=== PATIENT | female | born 1990 | race Caucasian/White ===

== ENCOUNTER 2018-05-24 13:16 | Emergency (ER) | payer OTHER ==
[2018-05-24 13:38] VITALS: BP 108/62; PULSE 79; TEMP 101.2; BMI 26.4
--- NOTE | 2018-05-24 14:41 | PDOC ---
History of Present Illness - General Chief Complaint: Cold Symptoms Stated Complaint: HEADACHE, COUGH Time Seen by Provider: 05/24/18 14:32 History Source: Patient Exam Limitations: No Limitations - History of Present Illness Initial Comments: 05/24/18 16:34 Pt is a 27 y/o F currently 16 weeks , who presents to the ED with flu like symptoms starting since last night. Pt states that her son had the flu last week and she feels like she has the same symptoms. Admits to body aches, fever, sore throat and cough. Denies vaginal bleeding, vomiting, nausea and diarrhea. Past History - Travel Traveled outside of the country in the last 30 days: No Close contact w/someone who was outside of country & ill: No - Past Medical History Allergies/Adverse Reactions: Allergies Allergy/AdvReac Type Severity Reaction Status Date / Time No Known Allergies Allergy Verified 05/24/18 14:53 Home Medications: Ambulatory Orders Acetaminophen [Tylenol] 650 mg PO Q6H #30 tablet 05/24/18 Albuterol Sulfate Inhaler - [Ventolin HFA Inhaler -] 1 - 2 inh PO Q4H #1 inhaler 05/24/18 Ondansetron [Zofran Odt -] 4 mg SL TID #10 od.tablet 05/24/18 Oseltamivir Phosphate [Tamiflu] 75 mg PO BID #10 capsule 05/24/18 - Suicide/Smoking/Psychosocial Hx Smoking History: Never smoked Have you smoked in the past 12 months: No Information on smoking cessation initiated: No Hx Alcohol Use: No Drug/Substance Use Hx: No Review of Systems - Review of Systems Able to Perform ROS?: Yes Comments:: 05/24/18 16:08 CONSTITUTIONAL: Present: Fever, chills, body aches Absent: diaphoresis, generalized weakness, malaise, loss of appetite HEENT: Present: rhinorrhea, nasal congestion, throat pain. Absent: difficulty swallowing, mouth swelling, ear pain, eye pain, visual Changes CARDIOVASCULAR: Absent: chest pain, loss of consciousness, palpitations, irregular heart rate, peripheral edema RESPIRATORY: Present: Cough Absent: shortness of breath, dyspnea with exertion, orthopnea, wheezing, stridor, hemoptysis GASTROINTESTINAL: Absent: abdominal pain, abdominal distension, nausea, vomiting, diarrhea, constipation, melena, hematochezia SKIN: Absent: rash, itching, pallor NEUROLOGIC: Present: headache Absent: focal weakness or paresthesias, dizziness, unsteady gait, seizure, mental status changes, bladder or bowel incontinence Is the patient limited Czech proficient: No *Physical Exam - Vital Signs Last Vital Signs Temp Pulse Resp BP Pulse Ox 101.2 F H 79 20 108/62 99 05/24/18 13:33 05/24/18 13:33 05/24/18 13:33 05/24/18 13:33 05/24/18 13:33 - Physical Exam Comments: 05/24/18 16:08 GENERAL: Well developed, well nourished. Awake and alert. No acute distress. HEENT: Normocephalic, atraumatic. PERRLA, EOMI. No conjunctival pallor. Sclera are non- icteric. Moist mucous membranes. Oropharynx is clear. NECK: Supple. Full ROM. No JVD. Carotid pulses 2+ and symmetric, without bruits. No thyromegaly. No lymphadenopathy. CARDIOVASCULAR: Regular rate and rhythm. No murmurs, rubs, or gallops. Distal pulses are 2+ and symmetric. PULMONARY: No evidence of respiratory distress. Lungs clear to auscultation bilaterally. No wheezing, rales or rhonchi. ABDOMINAL: Soft. Non-tender. Non-distended. No rebound or guarding. No organomegaly. Normoactive bowel sounds. MUSCULOSKELETAL Normal range of motion at all joints. No bony deformities or tenderness. No CVA tenderness. EXTREMITIES: No cyanosis. No clubbing. No edema. No calf tenderness. SKIN: Warm and dry. Normal capillary refill. No rashes. No jaundice. NEUROLOGICAL: Alert, awake, appropriate. Cranial nerves 2-12 intact. No deficits to light touch and temperature in face, upper extremities and lower extremities. No motor deficits in the in face, upper extremities and lower extremities. Normoreflexic in the upper and lower extremities. Normal speech. Toes are down- going bilaterally. Gait is normal without ataxia. PSYCHIATRIC: Cooperative. Good eye contact. Appropriate mood and affect. Moderate Sedation - Procedure Monitoring Vital Signs: Procedure Monitoring Vital Signs Temperature 101.2 F H 05/24/18 13:33 Pulse Rate 79 05/24/18 13:33 Respiratory Rate 20 05/24/18 13:33 Blood Pressure 108/62 05/24/18 13:33 O2 Sat by Pulse Oximetry (%) 99 05/24/18 13:33 Medical Decision Making - Medical Decision Making 05/24/18 15:40 Pt is a 27 y/o F, currently 16 weeks , who presents to the ED with one day of flu like symptoms. Lung sounds clear b/l with good aeration to the bases Febrile to 101. 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 I answered all of the patient's questions. The patient was satisfied with the care received and felt comfortable with the discharge plan and treatment plan. The Patient agrees to follow up with the primary care physician/specialist within 24-72 hours. Return precautions were given. *DC/Admit/Observation/Transfer Diagnosis at time of Disposition: Influenza A - Discharge Dispostion Disposition: HOME Condition at time of disposition: Stable Decision to Admit order: No - Prescriptions Prescriptions: Acetaminophen [Tylenol] 650 mg PO Q6H #30 tablet Albuterol Sulfate Inhaler - [Ventolin HFA Inhaler -] 1 - 2 inh PO Q4H #1 inhaler Ondansetron [Zofran Odt -] 4 mg SL TID #10 od.tablet Oseltamivir Phosphate [Tamiflu] 75 mg PO BID #10 capsule - Referrals Referrals: Frank Chong MD [Staff Physician] - - Patient Instructions Printed Discharge Instructions: DI for Influenza -- Adult Additional Instructions: You have the flu. This is a virus that will get better on its own in approximately 7-10 days. You will most likely have a fever for 7-10 days because of the flu. This is to be expected. Drink plenty of fluids to prevent dehydration and get plenty of rest. Warm tea and cough drops may help your symptoms as well. Take the tamiflu twice a day for 5 days to help reduce the symptoms of the flu. This medication will not cure the flu. Take Tylenol as directed for pain and fever. Take all other medications as prescribed. Follow up with your primary care doctor this week Return to the ED for difficulty breathing, shortness of breath, weakness, or if you have any other changes in your symptoms. - Post Discharge Activity Forms/Work/School Notes: Back to Work
[2018-05-24] MEDS ORDERED: ACETAMINOPHEN 325 MG TABLET (FP) PO ONE (14:58)
[2018-05-24] MEDS ORDERED: ALBUTEROL SO4 2.5/IPRATROPIUM 0.5 INH SOL 3 ML VIAL.NEB. NEB ONE ×2 (14:59→15:03)
[2018-05-24] MEDS ORDERED: IBUPROFEN 600 MG TABLET (FP) PO ONE (15:00)
[2018-05-24] MEDS ORDERED: ACETAMINOPHEN 325 MG TABLET (FP) ONE (15:03)
== END 2018-05-24 16:28 | disposition home or self-care (01) ==
LOC: JERFT 13:16
PROC: 3E0F7GC Introduction of Other Therapeutic Substance into Respiratory Tract, Via Natural or Artificial Opening (ICD-10-PCS; principal; 2018-05-24)
DX: O26.892 Other specified pregnancy related conditions, second trimester (principal); O98.512 Other viral diseases complicating pregnancy, second trimester; J09.X2 Influenza due to identified novel influenza A virus with other respiratory manifestations; B33.8 Other specified viral diseases; Z3A.16 16 weeks gestation of pregnancy
CPT/HCPCS: 87070; 87804; 87880; 94640; 99281-25

== ENCOUNTER 2018-11-15 06:20 | Inpatient (IN) | payer OTHER ==
[2018-11-15 06:54] VITALS: BMI 28.5
[2018-11-15] MEDS ORDERED: ELECTROLYTE-148 SOLN 1,000 ML IV SCH ×3 (07:15→08:00)
[2018-11-15] MEDS ORDERED: CITRIC ACID/SODIUM CITRATE 30 ML UNIT-DOSE CUP PO ONE (07:15)
--- NOTE | 2018-11-15 08:04 | HP ---
Past Medical History - Admission Chief Complaint: Elective History of Present Illness: 28 yo @ 39 weeks gestation, EDC 11/22/18, is pre op for repeat . History Source: Patient Limitations to Obtaining History: No Limitations - Past Medical History ...: 2 ...Para: 1 ...EDC by Oswaldo: 11/22/18 - Past Surgical History Past Surgical History: Yes: Hx Myomectomy: No Hx Transabdominal Cerclage: No - Smoking History Smoking history: Never smoked Have you smoked in the past 12 months: No - Alcohol/Substance Use Hx Alcohol Use: No History of Substance Use: reports: None - Social History Usual Living Arrangement: Yes: With Spouse History of Recent Travel: No Home Medications - Allergies Allergies/Adverse Reactions: Allergies Allergy/AdvReac Type Severity Reaction Status Date / Time No Known Allergies Allergy Verified 05/24/18 14:53 - Home Medications Home Medications: Ambulatory Orders 19 Tablet 1 tab PO DAILY 11/15/18 Family Disease History - Family Disease History Family History: Unremarkable Review of Systems - Review of Systems Constitutional: reports: No Symptoms Eyes: reports: No Symptoms HENT: reports: No Symptoms Neck: reports: No Symptoms Cardiovascular: reports: No Symptoms Respiratory: reports: No Symptoms Gastrointestinal: reports: No Symptoms Genitourinary: reports: Pain Breasts: reports: No Symptoms Reported Musculoskeletal: reports: No Symptoms Integumentary: reports: No Symptoms Neurological: reports: No Symptoms Endocrine: reports: No Symptoms Hematology/Lymphatic: reports: No Symptoms Psychiatric: reports: No Symptoms Pain Intensity: 4 Physical Exam - Maternity Vital Signs: Vital Signs Temperature 98.8 F 11/15/18 06:47 Pulse Rate 84 11/15/18 06:47 Respiratory Rate 20 11/15/18 06:47 Blood Pressure 115/70 11/15/18 06:47 O2 Sat by Pulse Oximetry (%) Constitutional: Yes: Well Nourished Eyes: Yes: Conjunctiva Clear HENT: Yes: Atraumatic Neck: Yes: Supple Cardiovascular: Yes: Regular Rate and Rhythm Lungs: Clear to auscultation - Abdominal Exam/OB Number of Fetuses: Single Presentation: Vertex Regularity: Irregular Intensity: Mild - Vaginal Exam/OB Vaginal Bleediing: No Presentation: Vertex/Position - Physical Exam ...Motor Strength: WNL Psychiatric: Yes: Alert, Oriented Problem List - Problems (1) 39 weeks gestation of Code(s): Z3A.39 - 39 WEEKS GESTATION OF Assessment/Plan Previous Pre op for repeat Consent signed Anesthesia to see patient
[2018-11-15] MEDS ORDERED: ONDANSETRON 4 MG/2 ML VIAL IVPUSH PRN (08:24)
[2018-11-15] MEDS ORDERED: morphine SULFATE/PF 0.5 MG/ML (2cc Syringe - QUVA) ONE (08:30)
[2018-11-15] MEDS ORDERED: ceFAZolin SODIUM 1 GM VIAL ONE (08:43)
[2018-11-15] MEDS ORDERED: OXYTOCIN 10 UNITS/ML VIAL ONE (08:55)
[2018-11-15] MEDS ORDERED: METHYLERGONOVINE MALEATE 0.2 MG/1 ML AMP IM PRN (10:02)
--- NOTE | 2018-11-15 10:07 | OP ---
Operative Note - Note: Operative Date: 11/15/18 Pre-Operative Diagnosis: IUP @ 39 weeks with previous Operation: Repeat Low Transverse Findings: Baby in ROT position Post-Operative Diagnosis: Same as Pre-op Surgeon: Sera Pyle Fermentation Manager: Cornelio Sandoval Anesthesia: Spinal Specimens Removed: Placenta Estimated Blood Loss (mls): 600 Operative Report Dictated: Yes
[2018-11-15] MEDS ORDERED: OXYTOCIN 20 UNITS in 0.9% NS 20 UNIT/1,000 ML INFUS.BAG IV SCH (10:15)
--- NOTE | 2018-11-15 10:43 | OP ---
DATE OF OPERATION: 11/15/2018 PREOPERATIVE DIAGNOSIS: Previous section. POSTOPERATIVE DIAGNOSIS: Previous section. PROCEDURE: Repeat low transverse section. SURGEON: Neftali Pyle M.D. SENIOR EMBEDDED SOFTWARE ENGINEER: SÁNCHEZ Velasquez ANESTHESIA: Spinal. COMPLICATIONS: None. ESTIMATED BLOOD LOSS: 600 mL PROCEDURE: Patient was taken to the operating room where spinal anesthesia was administered. Patient was then prepped and draped in proper sterile fashion. A Pfannenstiel skin incision was made and carried down to the underlying layer of fascia after removing the old scar. The fascia was incised in the midline and extended laterally. The inferior aspect of the fascial incision was then grasped with Mandi clamps, elevated and the rectus muscle dissected out bluntly. Attention was then turned to the superior aspect of the fascial incision, which in a similar fashion was then grasped with the Mandi clamp, elevated and the rectus muscle dissected off bluntly. The rectus muscle was then in the midline, the peritoneum identified and entered sharply with the Metzenbaum scissors. This incision was extended superiorly and inferiorly with good visualization of the bladder and the vesicouterine peritoneum was then grasped with the pickup and entered sharply with the Metzenbaum scissors. This incision was extended laterally and a bladder flap created digitally. The bladder blade was inserted. The lower uterine segment was incised using a 10 blade. This incision was extended laterally and the head delivered atraumatically. Nose and mouth were suctioned and the cord clamped and cut. The was handed to the waiting department administrator. The placenta was removed manually. The uterus was exteriorized and cleared off all clots and debris. The uterine incision was repaired using 0 Biosyn in a running locked fashion. A 2nd layer of the same suture was used as a means to provide excellent hemostasis. The pelvis was then irrigated. The uterus was returned to the abdomen. The peritoneum was closed using 2-0 Biosyn. The fascia was reapproximated using 0 Vicryl in a running fashion and the skin was closed in a subcuticular fashion using 3-0 Vicryl. Patient tolerated the procedure well. Patient was then taken to PACU in stable condition. PATHOLOGY: Placenta. NEFTALI PYLE M.D. [id number] [facility]
[2018-11-15] MEDS: IBUPROFEN 800 MG/8 ML IJ IVPB PRN ×2 (13:02→22:54)
[2018-11-15] MEDS: FERROUS SO4 325 MG TABLET (FP) PO SCH (21:36)
--- NOTE | 2018-11-16 07:09 | PN ---
Progress Note (SOAP) - Subjective Chief Complaint: Pt found sitting in chair - Current Medications Current Medications: Active Medications Bisacodyl (Dulcolax Suppository -) 10 mg RC PRN PRN PRN Reason: CONSTIPATION Diphenhydramine HCl (Benadryl Injection -) 25 mg IVPUSH Q4H PRN PRN Reason: Pruritis Ferrous Sulfate (Feosol -) 325 mg PO BID LACY Last Admin: 11/15/18 21:36 Dose: Not Given Ibuprofen (Motrin -) 600 mg PO Q4H PRN PRN Reason: PAIN LEVEL 1 - 3 Ibuprofen (Caldolor Injection -) 800 mg IVPB Q8H PRN PRN Reason: PAIN LEVEL 4 - 6 Last Admin: 11/15/18 22:54 Dose: 800 mg Methylergonovine Maleate (Methergine Injection -) 0.2 mg IM Q4H PRN PRN Reason: Excessive Bleeding (L&D) Ondansetron HCl (Zofran Injection) 4 mg IVPUSH Q4H PRN PRN Reason: NAUSEA Oxycodone HCl (Roxicodone -) 5 mg PO Q4H PRN PRN Reason: PAIN LEVEL 4 - 6 Multivit/Folic Acid/Iron ( Vitamins (Sjr) -) 1 tab PO DAILY [facility] Simethicone (Mylicon -) 80 mg PO Q4H PRN PRN Reason: GAS - Objective Vital Signs: Vital Signs Temperature 98.6 F 11/16/18 06:00 Pulse Rate 80 11/16/18 06:00 Respiratory Rate 18 11/16/18 06:00 Blood Pressure 122/74 11/16/18 06:00 O2 Sat by Pulse Oximetry (%) 100 11/15/18 11:00 Constitutional: Yes: Well Nourished, No Distress Cardiovascular: Yes: WNL Respiratory: Yes: WNL Gastrointestinal: Yes: WNL, Soft ....Post : Yes: Uterus firm, Uterus non-tender Extremities: Yes: WNL Edema: Yes Edema: LLE: Trace, RLE: Trace Wound/Incision: Yes: Dressing Dry and Intact Neurological: Yes: WNL, Alert, Oriented Problem List - Problems (1) delivery delivered Code(s): O82 - ENCOUNTER FOR DELIVERY WITHOUT INDICATION Assessment/Plan POD 3 stable Plan OOB to ambulate cont present management
[2018-11-16 07:23] LABS: BASO % 0.5 % (0-2.0); EOS % 0.8 % (0-4.5); HEMATOCRIT 38.6 % (32.4-45.2); HEMOGLOBIN 12.9 GM/dL (10.7-15.3); MCH 30.2 pg (25.7-33.7); MCHC 33.5 g/dl (32.0-36.0); MEAN PLT VOLUME 8.6 fl (7.5-11.1); MONO % 6.5 % (3.8-10.2); NEUT % 71.2 % (42.8-82.8); PLATELET COUNT 174 K/MM3 (134-434); RBC 4.29 M/mm3 (3.60-5.2); RDW 14.9 % (11.6-15.6); WHITE BLOOD COUNT 7.3 K/mm3 (4.0-10.0)
[2018-11-16] MEDS: SIMETHICONE 80 MG TAB.CHEW (FP) PO PRN ×3 (07:31→19:08)
[2018-11-16] MEDS: oxyCODONE HCL 5 MG TABLET PO PRN ×3 (07:31→19:08)
[2018-11-16] MEDS: IBUPROFEN 600 MG TABLET (FP) PO PRN ×3 (07:32→19:09)
[2018-11-16] MEDS: FERROUS SO4 325 MG TABLET (FP) PO SCH ×2 (09:14→21:43)
[2018-11-16] MEDS: PRENATAL VITAMINS W/ FOLIC ACID TABLET (FP) PO SCH (09:14)
[2018-11-16] MEDS ORDERED: BISACODYL 10 MG SUPP.RECT RC PRN (10:03)
--- NOTE | 2018-11-16 15:06 | PN ---
Progress Note (short form) - Note Progress Note: Anesthesia postop note 28 y/o F s/p spinal anesthesia/duramorph for repeat section POD#1, vss, aaox3, sensory motor intact distally, no complaints. No anesthesia complications.
[2018-11-17] MEDS: IBUPROFEN 600 MG TABLET (FP) PO PRN ×4 (00:45→20:36)
[2018-11-17] MEDS: SIMETHICONE 80 MG TAB.CHEW (FP) PO PRN ×4 (00:45→20:35)
[2018-11-17] MEDS: oxyCODONE HCL 5 MG TABLET PO PRN ×4 (00:49→20:35)
--- NOTE | 2018-11-17 09:23 | PN ---
Post Progress Note - Subjective Subjective: Pt OOB in chair eating. No complaints. VB minimal, pain controlled. Type of Delivery: Repeat C/S Vital Signs: Vital Signs Temperature 98.3 F 11/17/18 08:46 Pulse Rate 79 11/17/18 08:46 Respiratory Rate 20 11/17/18 08:46 Blood Pressure 114/79 11/17/18 08:46 O2 Sat by Pulse Oximetry (%) 100 11/15/18 11:00 Uterus: Yes: Fundus Firm Incision: Yes: Dressing dry and intact Abdomen/GI: Yes: Abdomen soft, Tolerating PO Lochia: Yes: Rubra Extremities: Yes: Calves non-tender. No: Edema Perineum: Yes: Intact Activity: Ambulating - Labs Labs: CBC WBC 7.3 K/mm3 (4.0-10.0) 11/16/18 06:50 RBC 4.29 M/mm3 (3.60-5.2) 11/16/18 06:50 Hgb 12.9 GM/dL (10.7-15.3) 11/16/18 06:50 Hct 38.6 % (32.4-45.2) 11/16/18 06:50 MCV 90.0 fl (80-96) 11/16/18 06:50 MCH 30.2 pg (25.7-33.7) 11/16/18 06:50 MCHC 33.5 g/dl (32.0-36.0) 11/16/18 06:50 RDW 14.9 % (11.6-15.6) 11/16/18 06:50 Plt Count 174 K/MM3 (134-434) 11/16/18 06:50 MPV 8.6 fl (7.5-11.1) 11/16/18 06:50 Absolute Neuts (auto) 5.2 K/mm3 (1.5-8.0) 11/16/18 06:50 Neutrophils % 71.2 % (42.8-82.8) D 11/16/18 06:50 Lymphocytes % 21.0 % (8-40) D 11/16/18 06:50 Monocytes % 6.5 % (3.8-10.2) 11/16/18 06:50 Eosinophils % 0.8 % (0-4.5) D 11/16/18 06:50 Basophils % 0.5 % (0-2.0) D 11/16/18 06:50 Nucleated RBC % 0 % (0-0) 11/16/18 06:50 Problem List - Problems (1) delivery delivered Code(s): O82 - ENCOUNTER FOR DELIVERY WITHOUT INDICATION Assessment/Plan POD#2 s/p repeat LTCS AFVSS CBC stable regular diet PO pain meds routine care
[2018-11-17] MEDS: PRENATAL VITAMINS W/ FOLIC ACID TABLET (FP) PO SCH (10:06)
[2018-11-17] MEDS: FERROUS SO4 325 MG TABLET (FP) PO SCH ×2 (10:06→21:02)
--- NOTE | 2018-11-18 03:40 | DS ---
Physical Exam-RAILROAD SIGNAL TECHNICIAN Vital Signs: Vital Signs Temperature 98.8 F 11/17/18 20:37 Pulse Rate 64 11/17/18 20:37 Respiratory Rate 20 11/17/18 20:37 Blood Pressure 120/70 11/17/18 20:37 O2 Sat by Pulse Oximetry (%) 100 11/15/18 11:00 Constitutional: Yes: Well Nourished Eyes: Yes: Conjunctiva Clear HENT: Yes: Atraumatic Neck: Yes: Supple Cardiovascular: Yes: Regular Rate and Rhythm Respiratory: Yes: Regular Gastrointestinal: Yes: Normal Bowel Sounds External Genitalia: Yes: Normal Vaginal Exam: Yes: Normal Cervix: Yes: Normal Uterus: Yes: Firm Musculoskeletal: Yes: WNL Extremities: Yes: WNL Wound/Incision: Yes: Well Approximated, Steri Strips (in place) Neurological: Yes: Alert, Oriented ...Motor Strength: WNL Psychiatric: Yes: Alert, Oriented Labs: CBC, BMP 11/16/18 06:50 Delivery - Delivery Type of Anesthesia: Spinal Episiotomy/Laceration: None EBL (cc): 600 Delivery, Single - Stages of Labor Date 1st Stage Initiatied: 11/15/18 Time 1st Stage Initiated: 06:50 Date of Delivery: 11/15/18 Time of Delivery: 08:57 Time Placenta Delivered: 08:58 - Condition of Infant Pressroom Supervisor/Historian Research Assistant Present: Yes Name: Esequiel Saha Infant Gender: Female Weight: 7 lb 13 oz Position: Right, OT Total Hours ROM (Hrs/Mins): 2hrs 8 min - 1 Minute Total Score: 9 5 Minutes Total Score: 9 - Feeding Plan Initial Plan: Elected not to breastfeed exclusively throughout hospitalization Discharge Summary Reason For Visit: REPEAT Current Active Problems 39 weeks gestation of (Acute) delivery delivered (Acute) Procedures: Principal: Repeat Low Transverse Hospital Course: Routine post op care Condition: Good - Instructions Diet, Activity, Other Instructions: Regular diet No driving, no lifting x 4 weeks F/U with MD in 2 weeks Disposition: HOME - Home Medications Comprehensive Discharge Medication List: Ambulatory Orders 19 Tablet 1 tab PO DAILY 11/15/18
[2018-11-18] MEDS: SIMETHICONE 80 MG TAB.CHEW (FP) PO PRN ×2 (03:46→11:15)
[2018-11-18] MEDS: oxyCODONE HCL 5 MG TABLET PO PRN (03:46)
[2018-11-18] MEDS: IBUPROFEN 600 MG TABLET (FP) PO PRN ×2 (03:47→11:15)
[2018-11-18 08:54] LABS: BASO % 0.5 % (0-2.0); EOS % 1.9 % (0-4.5); HEMATOCRIT 37.1 % (32.4-45.2); HEMOGLOBIN 12.3 GM/dL (10.7-15.3); LYMPH % 33.9 % (8-40); MCH 29.8 pg (25.7-33.7); MCHC 33.2 g/dl (32.0-36.0); MEAN CELL VOLUME 89.9 fl (80-96); MEAN PLT VOLUME 8.4 fl (7.5-11.1); MONO % 4.4 % (3.8-10.2); NEUT % 59.3 % (42.8-82.8); PLATELET COUNT 219 K/MM3 (134-434); RBC 4.12 M/mm3 (3.60-5.2); RDW 14.8 % (11.6-15.6); WHITE BLOOD COUNT 6.4 K/mm3 (4.0-10.0)
[2018-11-18] MEDS: PRENATAL VITAMINS W/ FOLIC ACID TABLET (FP) PO SCH (09:23)
[2018-11-18] MEDS: FERROUS SO4 325 MG TABLET (FP) PO SCH (09:23)
[2018-11-18 14:02] VITALS: BP 141/82; PULSE 75; TEMP 98.7
--- NOTE | 2018-11-18 20:20 | PATH ---
Surgical Pathology Report Patient Name: STEVENSON WILLS [facility]. Rec. #: [id number] /Age/Gender: 1990 (Age: 28) / F Account: [id number] Location: [facility] OBS/SENIOR PLANNER Taken: 11/15/2018 Received: 11/16/2018 Reported: 11/18/2018 Physicians: Sera Pyle M.D. Specimen(s) Received PLACENTA Clinical History , 07/17 Final Diagnosis PLACENTA: THIRD TRIMESTER PLACENTA WITH FOCAL CALCIFICATION. TRIVASCULAR CORD. MEMBRANES WITH NO DIAGNOSTIC ABNORMALITIES. Electronically Signed Bernabe Sky M.D. Gross Description The specimen is received fresh labeled placenta and is a 571 gram, 18.0 x 15.5 x 3.4 cm. placenta with attached membranes and umbilical cord. The attached membranes are ro, translucent with focal opacities and insert marginally. The umbilical cord measures 41 cm. in length and averages 1.2 cm. in diameter. The cord inserts eccentrically, 5 cm. to the nearest margin. No true knots or strictures are identified. Cut surface of the umbilical cord reveals 3 vessels. The surface is davidson-blue with minimal fibrin deposition and appropriate caliber vessels. The maternal surface is red-brown with focal defects. Sectioning reveals red-brown, spongy parenchyma. No lesions are identified. Manager Culture sections are submitted in three cassettes as follows: 1- membrane rolls and umbilical cord; 2-3- full thickness sections of placenta. /11/17/2018 [facility]11/17/2018
== END 2018-11-18 14:05 | disposition home or self-care (01) | DRG 540 ==
LOC: JLDR 06:20 → J3W 11:17
PROVIDERS: ADMIT Obstetrics & Gynecology; ATTEND Obstetrics & Gynecology
PROC: 10D00Z1 Extraction of Products of Conception, Low, Open Approach (ICD-10-PCS; principal; 2018-11-15)
DX: O34.211 Maternal care for low transverse scar from previous cesarean delivery (principal); N85.8 Other specified noninflammatory disorders of uterus; Z3A.39 39 weeks gestation of pregnancy; Z37.0 Single live birth
CPT/HCPCS: 36415; 85025; 88307-TC